=== PATIENT | female | born 1990 | race Caucasian/White ===

== ENCOUNTER 2018-03-09 19:45 | Emergency (ER) | payer OTHER ==
--- NOTE | 2018-03-09 20:09 | PDOC ---
History of Present Illness - General Stated Complaint: EAR PAIN History Source: Patient Exam Limitations: No Limitations - History of Present Illness Initial Comments: 03/09/18 20:06 Best contact: [phone] LMPx2 weeks 27 yp F presents to the ER w/o any pmhx c/o left sided earache x1.5h. Deneis any fever/chills, n/v, valentin, dizziness/lightheadedness, nasal congestion, sore throat, facial pain, diff swallowing, cp, sob, abd pain. Pt did not take any pain meds. Past History - Past Medical History Allergies/Adverse Reactions: Allergies Allergy/AdvReac Type Severity Reaction Status Date / Time aspirin Allergy Verified 03/09/18 20:09 Home Medications: Ambulatory Orders Amoxicillin - [Amoxicillin 875mg Tablet -] 875 mg PO BID #20 tablet 03/09/18 Review of Systems - Review of Systems Able to Perform ROS?: Yes Is the patient limited Lao proficient: No Constitutional: No: Chills, Fever HEENTM: Yes: Ear Pain (left) *Physical Exam - Physical Exam General Appearance: Yes: Nourished, Appropriately Dressed. No: Apparent Distress HEENT: positive: TM Bulging (left), TM Erythema (left). negative: Tonsillar Exudate, Tonsillar Erythema Neck: positive: Trachea midline. negative: Tender Respiratory/Chest: positive: Lungs Clear *DC/Admit/Observation/Transfer Diagnosis at time of Disposition: LOM (left otitis media) Qualifiers: Otitis media type: unspecified Qualified Code(s): H66.92 - Otitis media, unspecified, left ear - Discharge Dispostion Disposition: HOME Condition at time of disposition: Good Decision to Admit order: No - Prescriptions Prescriptions: Amoxicillin - [Amoxicillin 875mg Tablet -] 875 mg PO BID #20 tablet - Referrals Referrals: Rajan He MD [Staff Physician] - - Patient Instructions Printed Discharge Instructions: Middle Ear Infection Additional Instructions: Amoxicillin until completion Follow up with you rpmd or the ENT listed on your discharge Return to the ER for severe/persistent/worsening symptoms Tylenol alternate4 with motrin as needed for pain or fever. - Post Discharge Activity
[2018-03-09 20:24] VITALS: BP 144/78; PULSE 92; TEMP 98.6; BMI 27.4
== END 2018-03-09 20:15 | disposition home or self-care (01) ==
LOC: JER 19:45
DX: H66.92 Otitis media, unspecified, left ear (principal)
CPT/HCPCS: 99281-25